=== PATIENT | female | born 2000 | race Hispanic/Latino ===

== ENCOUNTER 2021-06-28 19:35 | Emergency (ER) | payer OTHER ==
[~2021-06-28] VITALS: Ht 144.8 cm; Wt 52.2 kg
[2021-06-28] MEDS ORDERED: ONDANSETRON 4MG INJ ONE (20:59)
[2021-06-28] MEDS ORDERED: 0.9%NACL 1000ML 1,000 ML IV ONE (21:00)
[2021-06-28] MEDS ORDERED: FAMOTIDINE 20MG VIAL IV ONE (21:00)
[2021-06-28] MEDS ORDERED: ONDANSETRON 4MG INJ IVP ONE (21:00)
[2021-06-28] MEDS ORDERED: KETOROLAC 30MG VIAL (30MG/ML) IVP ONE (21:00)
[2021-06-28 21:03] LABS: BASOPHILS % (AUTO) 0.2 % (0.0-5.0); EOSINOPHILS % (AUTO) 0.1 % (0.0-8.0); HEMATOCRIT 38.5 % (36-48); LYMPHOCYTES % (AUTO) 2.3 % (21.0-51.0); MEAN CORPUSCULAR HEMOGLOBIN 31.1 pg (27.0-33.0); MEAN CORPUSCULAR HGB CONC 35.6 g/dL (32.0-36.0); MEAN CORPUSCULAR VOLUME 87.5 fL (79-99); MONOCYTES % (AUTO) 3.4 % (3.0-13.0); NEUTROPHILS % (AUTO) 93.6 % (40.0-77.0); PLATELET COUNT (AUTO) 248 K/uL (130-400); RED CELL DISTRIBUTION WIDTH 11.9 % (11.0-15.5); WHITE BLOOD COUNT (AUTO) 16.7 K/uL (4.8-10.8)
[2021-06-28 21:14] LABS: CREATININE 0.8 mg/dL (0.5-1.5); POTASSIUM 3.1 mmol/L (3.5-5.1)
[2021-06-28 21:18] LABS: ALBUMIN 4.2 g/dL (3.5-5.0); BILIRUBIN,TOTAL 0.6 mg/dL (0.2-1.0); TOTAL PROTEIN, SERUM 8.3 g/dL (6.0-8.3)
[2021-06-28] MEDS ORDERED: POTASSIUM BICARB/CIT AC 25 MEQ TABLET.EFF PO ONE (22:00)
[2021-06-28] MEDS ORDERED: DiphenhydrAMINE HCL 50 MG/ML VIAL ONE (22:34)
[2021-06-28] MEDS ORDERED: IOHEXOL-350 75 ML VIAL IV ONE (22:55)
[2021-06-28 22:57] LABS: APPEARANCE,URINE Clear (CLEAR); BILIRUBIN,URINE Negative (NEGATIVE); COLOR,URINE Yellow (YELLOW); GLUCOSE, URINE (UA) Negative (NEGATIVE); KETONES,URINE >=160 mg/dL (NEGATIVE); LEUKOCYTE ESTERASE ,URINE Small (NEGATIVE); NITRATE,URINE Negative (NEGATIVE); OCCULT BLOOD,URINE Large (NEGATIVE); PH,URINE >=9.0 (5.0-8.0); PROTEIN,URINE POS 1+ mg/dL (NEGATIVE)
[2021-06-28] MEDS ORDERED: DiphenhydrAMINE HCL 50 MG/ML VIAL IV ONE (23:00)
[2021-06-28 23:22] LABS: BACTERIA,URINE Rare /HPF (None Seen); MUCUS,URINE Moderate LPF (None Seen); RBC,URINE 26-50 /HPF (0-1); SQUAMOUS EPITHELIAL CELL,UR Few /HPF (0-2)
[2021-06-29] MEDS ORDERED: MORPHINE 2 MG SYG IVP ONE (00:30)
[2021-06-29] MEDS ORDERED: IBUP-2070 PO (01:10)
[2021-06-29] MEDS ORDERED: AMOX-429 PO (01:10)
[2021-06-29] MEDS ORDERED: METR500T PO (01:10)
[2021-06-29] MEDS ORDERED: ONDA4TAB4 PO (01:10)
[2021-06-29] MEDS ORDERED: FAMO-136 PO (01:10)
[2021-06-29] MEDS ORDERED: METRONIDAZOLE 500 MG TABLET ONE (01:26)
[2021-06-29 01:37] VITALS: BP 124/74
[2021-06-29] MEDS ORDERED: METRONIDAZOLE 500MG/100ML BAG 100 ML IVPB SCH (06:00)
== END 2021-06-29 01:39 | disposition home or self-care (01) ==
LOC: EDH 19:35
DX: K52.9 Noninfective gastroenteritis and colitis, unspecified (principal)
CPT/HCPCS: 36415; 74177; 80053; 81001; 83690; 84703; 85025; 96374; 96375; J1200; J2405; Q9967